=== PATIENT | male | born 1990 | race Caucasian/White ===

== ENCOUNTER 2020-10-11 21:09 | Emergency (ER) | payer MEDICAID, SELFPAY ==
[2020-10-11 21:22] VITALS: BP 162/91; PULSE 102; RESP 16; O2SAT 98; BMI 21.5
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
--- NOTE | 2020-10-11 21:35 | PC.NURSE ---
Upon bringing pt back from waiting room pt asked this rn can i smoke a cig , advised there is no smoking on hospital grounds, stated we can ask the doctor for nicotine gum/patch, pt stated that doesnt even work ...upon approaching room 8 pt stated I dont want to wait here , when asked to clarify pt started walking around ED with steady and reid gait, security present, pt approached by Dr. Pereira, attempted to re-direct pt. Pt eloped, I just want to go .
== END 2020-10-11 21:44 | disposition left against medical advice (07) ==
LOC: HO.ED 21:45
PROVIDERS: Emergency Provider Student in an Organized Health Care Education/Training Program
DX: Z02.9 Encounter for administrative examinations, unspecified (principal)
CPT/HCPCS: 99283

== ENCOUNTER 2021-10-19 06:37 | Emergency (ER) | payer MEDICAID, SELFPAY ==
--- NOTE | ~2021-10-19 | XR_ITS ---
EXAMINATION: XR CHEST CLINICAL INFORMATION: Right chest and upper abdominal pain. COMPARISON: Previous chest x-ray March 2020 TECHNIQUE: Frontal view of the chest was obtained. FINDINGS: The cardiac and mediastinal contours are normal. The lungs are clear. There is no pleural effusion or pneumothorax. There are right-sided rib fractures. Bony structures are otherwise unremarkable. XR/XR chest 1V IMPRESSION: No evidence for acute disease in the chest.
--- NOTE | ~2021-10-19 | CT_ITS ---
EXAMINATION: CT ANGIOGRAM OF THE CHEST WITH AND WITHOUT CONTRAST (CT PULMONARY ANGIOGRAM FOR PE) CLINICAL INFORMATION: Pleuritic chest pain. COMPARISON: None TECHNIQUE: Prior to contrast administration, noncontrast localization images were obtained. Subsequently, multidetector volumetric imaging was performed from the thoracic inlet to below the diaphragms following the administration of 65 mL Omnipaque 350 intravenous contrast. No contrast reaction reported Sagittal, coronal, and MIP oblique sagittal reformatted images were obtained on the CT workstation, uploaded to PACS, and reviewed. This CT examination was performed using dose optimization techniques as appropriate, variously including the following: *Automated exposure control *Adjustment of mA and/or kV according to patient size (this includes techniques or standardized protocols for targeted exams where dose is matched to indication/reason for exam; i.e. extremities or head) *Use of iterative reconstruction technique Total exam dose-length product 340 mGy-cm FINDINGS: Breathing motion limits exam. QUALITY OF STUDY/CONTRAST BOLUS: Satisfactory. PULMONARY ARTERIES: No central or segmental pulmonary emboli. THORACIC AORTA: No aneurysm or dissection. LUNG: No focal consolidation, nodules or masses. PLEURA: No pleural effusion or pneumothorax. MEDIASTINUM: Normal heart size. No pericardial effusion. No hilar or mediastinal lymphadenopathy. No evidence of septal bowing or right heart strain. CHEST WALL/AXILLA: No axillary or internal mammary lymphadenopathy. OSSEOUS STRUCTURES: No acute or suspicious osseous abnormality. UPPER ABDOMEN: Unremarkable. No reflux of contrast into the hepatic veins to suggest elevated right heart pressures. CT/CT angio chest PE protocol IMPRESSION: Normal CT of chest. No evidence of pulmonary embolism. VTE: negative
--- NOTE | ~2021-10-19 | CT_ITS ---
EXAMINATION: CT ABDOMEN AND PELVIS WITHOUT CONTRAST CLINICAL INFORMATION: Right upper quadrant pain. Right chest pain. COMPARISON: None TECHNIQUE: Multidetector volumetric imaging was performed from the superior aspect of the liver through the pubic symphysis. Sagittal and coronal reformatted images were obtained on the technologist's workstation. This CT examination was performed using dose optimization techniques as appropriate, variously including the following: *Automated exposure control *Adjustment of mA and/or kV according to patient size (this includes techniques or standardized protocols for targeted exams where dose is matched to indication/reason for exam; i.e. extremities or head) *Use of iterative reconstruction technique DLP: 497 mGy-cm FINDINGS: LUNG BASES: The lung bases are unremarkable. The heart size is normal. LIVER, GALLBLADDER, AND BILIARY TREE: The liver is normal in size, shape, and attenuation. No focal hepatic lesion or biliary ductal dilatation is present. The gallbladder is unremarkable with no evidence of radiopaque gallstones, gallbladder wall thickening, or obvious pericholecystic inflammatory changes. PANCREAS: Unremarkable. SPLEEN: Unremarkable. ADRENAL GLANDS: Unremarkable. KIDNEYS AND URETERS: There is contrast opacifying bilateral extrarenal kidney pelvises. Both kidneys are otherwise normal size, shape and position. BLADDER: Excreted urinary contrast opacifies part of the bladder. No bladder wall thickening seen. There is no free fluid. GASTROINTESTINAL TRACT: The small and large bowel are unremarkable. The appendix is unremarkable. ABDOMINAL WALL: No significant hernia is appreciated. LYMPH NODES: Normal. VASCULAR: Unremarkable. PELVIC VISCERA: The prostate gland is normal size. There is no free fluid. There is no abnormal pelvic lymph nodes OSSEOUS STRUCTURES: No lytic or sclerotic process seen. CT/CT abdomen pelvis wo con IMPRESSION: No acute intra-abdominal process seen. Fleischner guidelines were followed.
[2021-10-19 07:41] VITALS: BP 119/70; PULSE 96; RESP 22; TEMP 36.6; O2SAT 100; BMI 21.6
--- NOTE | 2021-10-19 07:45 | ECG_ITS ---
Test Reason : nausea Blood Pressure : / mmHG Vent. Rate : 092 BPM Atrial Rate : 092 BPM P-R Int : 130 ms QRS Dur : 086 ms QT Int : 350 ms P-R-T Axes : 081 065 050 degrees QTc Int : 432 ms Normal sinus rhythm Biatrial enlargement Pulmonary disease pattern ST elevation, consider early repolarization Abnormal ECG When compared with ECG of 17-APR-2020 22:48, ST elevation now present in Lateral leads Referred By: Generic ED Physician Electronically Signed By:NUBIA SAXENA
[2021-10-19 08:22] LABS: COVID-19 Test Negative (Negative)
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
[2021-10-19] MEDS: 0.9 % Sodium Chloride 1,000 ML 999 ML IV ×2 (10:31→15:21)
[2021-10-19] MEDS: ondansetron HCL 4 MG/2 ML VIAL IVPUSH (10:31)
[2021-10-19] MEDS: Ketorolac Tromethamine 30 MG/ML VIAL IVPUSH (10:31)
[2021-10-19 10:32] LABS: Adenovirus PCR Not Detected (Not Detect.); Bordetella parapertussis PCR Not Detected (Not Detect.); Bordetella pertussis PCR Not Detected (Not Detect.); Chlamydia pneumoniae PCR Not Detected (Not Detect.); Coronavirus 229E PCR Not Detected (Not Detect.); Coronavirus HKU1 PCR Not Detected (Not Detect.); Coronavirus NL63 PCR Not Detected (Not Detect.); Coronavirus OC43 PCR Not Detected (Not Detect.); Human metapneumovirus PCR Not Detected (Not Detect.); Influenza A PCR Not Detected (Not Detect.); Influenza B PCR Not Detected (Not Detect.); Mycoplasma pneumoniae PCR Not Detected (Not Detect.); Parainfluenza 1 PCR Not Detected (Not Detect.); Parainfluenza 2 PCR Not Detected (Not Detect.); Parainfluenza 3 PCR Not Detected (Not Detect.); Parainfluenza 4 PCR Not Detected (Not Detect.); RSV PCR Not Detected (Not Detect.); Rhino/Enterovirus PCR Not Detected (Not Detect.); SARS-CoV-2 PCR Not Detected (Not Detect.)
[2021-10-19 10:32] LABS: MANUAL DIFF FLAG NO
[2021-10-19 10:38] LABS: Basophils Percent Auto 0.3 % (0-2); Eosinophils Percent Auto 0.2 % (0-4); Hematocrit 48.4 % (42.0-52.0); Hemoglobin 16.5 g/dl (14.0-18.0); Imm Gran Abs Auto 0.03 X10*3/uL (0.00-0.03); Imm Gran Pct Auto 0.3 % (0.0-0.4); Lymphocytes Absolute Auto 0.3 X10*3/uL (1.2-4.9); Lymphocytes Percent Auto 2.5 % (20-40); Mean Corpuscular HGB Conc 34.1 g/dl (31.0-36.0); Mean Corpuscular Volume 90.8 fL (80.0-98.0); Mean Platelet Volume 10.6 fL (9.4-12.4); Monocytes Absolute Auto 0.9 X10*3/uL (0.1-1.2); Monocytes Percent Auto 8.6 % (2-11); Neutrophils Absolute Auto 8.9 x10*3/uL (2.0-8.3); Neutrophils Percent Auto 88.1 % (45-73); Platelet Count 225 X10*3/uL (160-400); Red Blood Count 5.33 X10*6/uL (4.60-5.80); Red Cell Distribution Width 14.2 % (11.0-16.0); White Blood Count 10.1 X10*3/uL (4.8-10.8)
[2021-10-19 10:44] LABS: Prothrombin Time 11.2 SEC (9.9-13.0)
[2021-10-19 10:50] LABS: Lactate Dehydrogenase 248 U/L (118-273)
[2021-10-19 10:51] LABS: Alanine Aminotransferase 31 U/L (0-40); Albumin Level 4.8 g/dL (3.5-5.0); Alkaline Phosphatase 68 U/L (39-117); Anion Gap 13 (12-20); Aspartate Amino Transferase 29 U/L (5-37); Blood Urea Nitrogen 24 mg/dL (9-16); Calcium 9.9 mg/dL (8.4-10.2); Carbon Dioxide 27 mmol/L (22-29); Chloride 107 mmol/L (96-108); Creatinine Clr Calc Pharmacy 128.6; Estimated Glomerular Filt Rate > 60; Glucose Random 128 mg/dL (60-115); Lipase 14 U/L (8-78); Potassium 4.3 mmol/L (3.3-5.1); Sodium 143 mmol/L (135-145); Total Protein 7.6 g/dL (6.5-8.0)
[2021-10-19 10:53] VITALS: BP 125/70; PULSE 80; RESP 16; TEMP 36.9; O2SAT 100
[2021-10-19 10:55] LABS: Troponin-I High Sensitivity 4.3 ng/L (<3.5-35.0)
[2021-10-19 11:10] LABS: Ferritin 151 ng/mL (20-250)
[2021-10-19 11:20] LABS: Procalcitonin 1.04 ng/mL
[2021-10-19] MEDS: iohexoL 350 MG/ML 100 ML INFUS..BTL IV (15:07)
[2021-10-19] MEDS: Famotidine/PF 20 MG/2 ML VIAL IVPUSH (15:26)
[2021-10-19] MEDS: Morphine Sulfate 2 MG/ML CARTRIDGE IVPUSH (15:27)
[2021-10-19 17:36] LABS: Appearance Urine HAZY; Color Urine YELLOW; Glucose Urine UA NEG (NEG); Leukocyte Esterase Urine NEG (NEG); Nitrite Urine NEG (NEG); UACC Culture Trigger NO; Urine Blood NEG (NEG); Urine Ketones NEG (NEG); Urine Protein 1+ MG/DL (NEG-TRACE)
[2021-10-19 18:16] LABS: Renal Epithelial Cells Urine TRACE /LPF
[2021-10-19 18:17] LABS: Bacteria Urine TRACE /LPF; Mucus Urine 1+ /LPF; RBC Urine 0-2 /HPF (0); Squamous Epithelial Cell Urine TRACE /LPF; WBC Urine 0-2 /HPF (0-4)
== END 2021-10-19 17:26 | disposition home or self-care (01) ==
PROVIDERS: Physician Assistant; Emergency Provider Emergency Medicine
DX: S22.31XA Fracture of one rib, right side, initial encounter for closed fracture (principal); Y04.2XXA Assault by strike against or bumped into by another person, initial encounter; R10.11 Right upper quadrant pain; Z20.822 Contact with and (suspected) exposure to COVID-19; Y93.9 Activity, unspecified; Y92.9 Unspecified place or not applicable; Y99.9 Unspecified external cause status
CPT/HCPCS: 36415; 71045; 71275; 74176; 80053; 81001; 82728; 83615; 83690; 84145; 84484; 85025; 85610; 85730; 87633; 87635; 93005; 96361; 96374; 96375; 99284; J1885; J2270; J2405; Q9967

== ENCOUNTER 2021-10-22 03:07 | Emergency (ER) | payer MEDICAID, SELFPAY ==
[2021-10-22 03:11] VITALS: BP 122/72; PULSE 78; RESP 18; TEMP 36.6; O2SAT 96; BMI 20.9
--- NOTE | 2021-10-22 03:38 | PC.NURSE ---
pt to room with c/o pain to chest and back, pt was here 2 nights ago for same problem. pt chg into gown, on monitor, VS obtained. will continue to monitor pt.
--- NOTE | 2021-10-22 04:34 | PC.NURSE ---
pt awaiting for 's eval.
--- NOTE | 2021-10-22 04:40 | PC.NURSE ---
pt medicated as per emar for back/rib pain. will continue to monitor pt.
[2021-10-22] MEDS: Ibuprofen 400 MG TABLET PO (04:50)
[2021-10-22] MEDS: Acetaminophen 325 MG TABLET 975 MG PO (04:50)
[2021-10-22] MEDS: Lidocaine 4 % Patch ADH..PATCH 1 PATCH TRANSDERMA (04:51)
--- NOTE | 2021-10-22 05:08 | ED.CHESTPAIN ---
HPI - Chest Pain General Chief Complaint: Chest Pain Stated Complaint: Rib pain Time Seen by Provider: 10/22/21 03:59 Source: patient Mode of arrival: ambulatory History of Present Illness HPI narrative: 30-year-old male presents with complaints of persistent bilateral lower rib pain that worsens with deep inspiration and started after patient had a recent episode of nausea and vomiting. Patient otherwise states that he was recently diagnosed with rib fractures. Related Data Previous Rx's Medication Instructions Recorded ketorolac 10 mg tablet 10 mg PO Q6H PRN 5 Days #20 tab 10/19/21 ondansetron HCl 4 mg tablet 4 mg PO Q6H PRN #8 tab 10/19/21 (Zofran) oxycodone-acetaminophen 5 mg-325 1 tab PO TID PRN #9 tab 10/19/21 mg tablet (Percocet) Allergies Allergy/AdvReac Type Severity Reaction Status Date / Time No Known Allergies Allergy Verified 10/22/21 03:11 [No Known Allergies*] Review of Systems Review of Systems: Pertinent positives and negatives as stated in HPI 10 point review of systems is otherwise negative. PMFSH Past Medical History Source: nursing notes reviewed Social History Social History Advance Directives: No Advance Directives Information Provided: No Physical Exam Vital Signs: Vital Signs: Last Vital Signs Temp 97.9 F 10/22/21 03:11 Pulse 78 10/22/21 03:11 Resp 18 10/22/21 03:11 BP 122/72 10/22/21 03:11 Pulse Ox 96 10/22/21 03:11 BMI result Body Mass Index 20.9 VITAL SIGNS: Reviewed. GENERAL: Well developed, well nourished, in no acute distress. HEAD: Normocephalic/atraumatic EYES: PERRLA, EOMI OROPHARYNX: no oral lesions noted, posterior pharynx clear LUNGS: Normal breath sounds. No adventitious sounds or accessory muscle use. SpO2<96>, mild tenderness on palpation of bilateral chest wall without crepitus, deformity CARDIOVASCULAR: Regular rate and rhythm without noted murmurs ABDOMEN: Soft, non-tender, non-distended with bowel sounds. NEUROLOGIC: Alert and oriented x 4. Course Course Course Narrative: 30-year-old male with history and clinical presentation consistent with costochondritis and review of very pleural workup on 10/19 negative for acute findings. Although there was noted conflicting imaging reads of whether not patient had rib fractures I contacted Radiology and got further clarification stating that the rib fractures noted on the chest x-ray from 10/19 were ?old, healed rib fractures? as determined by Dr. Alcazar. Patient was provided with combination analgesics as well as lidocaine patch and was reassured were noted on 10/19 where old/healed rib fractures. Patient was otherwise discharged home with treatment for suspected costochondritis and instructed to follow-up with primary care provider. Discharge Plan Discharge Clinical Impression: Chest wall pain, Costochondritis Patient Disposition: Home, Self-Care Instructions: Chest Wall Pain (ED), Costochondritis (ED) Additional Instructions: 1. Tylenol 1000 mg, orally, every 6 hours as needed for pain control. Do not exceed 4000 mg within 24 hours. 2. Ibuprofen 400 mg, orally with milk or food, every 6 hours as needed for pain control. You may take this medication with Tylenol for increased symptom relief. 3. Lidocaine patch, these are available [id number] and should be apply to area of tenderness as directed on the outside packaging. 4. Please locate and set care with a primary care provider at your earliest convenience. Return to the ER for acute worsening of symptoms. Prescriptions: No Action ketorolac 10 mg tablet 10 mg PO Q6H PRN (Reason: pain) 5 Days Qty: 20 RF: 0 ondansetron HCl [Zofran] 4 mg tablet 4 mg PO Q6H PRN (Reason: nausea and vomiting) Qty: 8 RF: 0 oxycodone-acetaminophen [Percocet] 5-325 mg tablet 1 tab PO TID PRN (Reason: pain) Qty: 9 RF: 0
--- NOTE | 2021-10-22 05:28 | PC.NURSE ---
pt awaiting for further orders.
== END 2021-10-22 06:15 | disposition home or self-care (01) ==
PROVIDERS: Emergency Provider Student in an Organized Health Care Education/Training Program
DX: M94.0 Chondrocostal junction syndrome [Tietze] (principal); R07.89 Other chest pain
CPT/HCPCS: 99283